=== PATIENT | male | born 1945 | race Caucasian/White ===

== ENCOUNTER 2021-01-01 11:24 | Inpatient (IN) | payer MEDICAID, OTHER ==
[2020-12-31 20:40] VITALS: BP 100/50
[~2021-01-01] VITALS: Ht 165.1 cm; Wt 77.7 kg
[2021-01-01] MEDS ORDERED: ASPI-1497 PO (11:38)
[2021-01-01] MEDS ORDERED: MIDO5TAB4 PO (11:38)
[2021-01-01] MEDS ORDERED: PANT40TA51 PO (11:38)
[2021-01-01] MEDS ORDERED: REN800 PO (11:38)
[2021-01-01] MEDS ORDERED: [UNRECOGNIZED DRUG - CODE] (11:38)
[2021-01-01] MEDS ORDERED: CLOP75TA15 PO (11:38)
[2021-01-01] MEDS ORDERED: ASPIRIN 81MG TABLET PO ONE (14:00)
[2021-01-01] MEDS: ASPIRIN 81MG TABLET PO SCH (14:45)
[2021-01-01 14:55] LABS: BASOPHILS % 0.8 % (0.0-2.0); EOSINOPHILS % 10.6 % (0.0-5.0); HEMATOCRIT. 35.3 % (42.0-52.0); HEMOGLOBIN. 12.3 g/dL (14.0-18.0); LYMPHOCYTES % 16.8 % (20.0-50.0); MEAN CORPUSCULAR VOLUME 97.3 fL (80.0-94.0); MEAN PLATELET VOLUME 9.7 fl (7.4-10.4); MONOCYTES % 6.1 % (2.0-8.0); NEUTROPHILS % 65.7 % (40.0-76.0); PLATELET 164 x1000/uL (130-400); RED BLOOD CELL COUNT 3.62 mill/uL (4.7-6.1); RED CELL DISTRIBUTION WIDTH 13.4 % (11.6-14.6)
[2021-01-01 15:04] LABS: CHLORIDE 97 mEq/L (98-107)
[2021-01-01] MEDS: CLOPIDOGREL 75MG TABLET PO SCH (15:33)
[2021-01-01] MEDS: POLYETHYLENE GLYCOL 3350 (17GM) 1 DOSE PACK PO SCH (15:44)
[2021-01-01] MEDS: SEVELAMER CARBONATE 800 MG TABLET PO SCH (17:20)
[2021-01-01] MEDS ORDERED: ONDANSETRON HCL 4MG/2ML INJ IV PRN (17:30)
[2021-01-01] MEDS ORDERED: MIDODRINE HCL 5MG TABLET PO SCH (17:45)
[2021-01-01] MEDS ORDERED: ENOXAPARIN 30MG/0.3ML SYR SUBCUT SCH (18:00)
[2021-01-01 20:50] VITALS: BP 100/50
[2021-01-01] MEDS: AMIODARONE HCL 200 MG TABLET PO SCH (22:15)
[2021-01-01] MEDS ORDERED: ENOXAPARIN 60MG/0.6ML SYR SUBCUT NR (22:15)
[2021-01-01 22:23] VITALS: BP 100/50
[2021-01-02] VITALS: BP 81/48
[2021-01-02 00:21] LABS: CREATINE KINASE 43 IU/L (39-308)
[2021-01-02 00:22] LABS: CREATINE KINASE MB FRACTION < 1.0 ng/mL (0.5-3.6)
[2021-01-02] MEDS: MIDODRINE HCL 5MG TABLET PO SCH ×4 (01:00→17:42)
[2021-01-02] MEDS: ACETAMINOPHEN 325MG TABLET PO PRN ×2 (01:00→12:27)
[2021-01-02 04:00] VITALS: BP 81/43
[2021-01-02] MEDS: PANTOPRAZOLE 40MG DR TABLET PO SCH (06:34)
[2021-01-02] MEDS: SEVELAMER CARBONATE 800 MG TABLET PO SCH ×3 (06:35→17:41)
[2021-01-02 06:55] LABS: EOSINOPHILS % 13.7 % (0.0-5.0); HEMATOCRIT. 32.3 % (42.0-52.0); HEMOGLOBIN. 11.1 g/dL (14.0-18.0); LYMPHOCYTES % 24.2 % (20.0-50.0); MEAN CORPUSCULAR HEMOGLOBIN 33.6 pg (28.0-32.0); MEAN CORPUSCULAR VOLUME 97.9 fL (80.0-94.0); MEAN PLATELET VOLUME 9.5 fl (7.4-10.4); MONOCYTES % 7.1 % (2.0-8.0); PLATELET 169 x1000/uL (130-400); RED CELL DISTRIBUTION WIDTH 13.5 % (11.6-14.6)
[2021-01-02 07:45] LABS: PHOSPHORUS 4.3 mg/dL (2.5-4.9)
[2021-01-02 07:50] LABS: CREATINE KINASE MB FRACTION 1.4 ng/mL (0.5-3.6)
[2021-01-02 08:00] VITALS: BP 89/47
[2021-01-02] MEDS: POLYETHYLENE GLYCOL 3350 (17GM) 1 DOSE PACK PO SCH (08:52)
[2021-01-02] MEDS: FOLIC ACID/VITAMIN B COMP W-C TABLET PO SCH (08:52)
[2021-01-02] MEDS: CLOPIDOGREL 75MG TABLET PO SCH (08:53)
[2021-01-02] MEDS: ASPIRIN 81MG TABLET PO SCH (08:53)
[2021-01-02] MEDS: AMIODARONE HCL 200 MG TABLET PO SCH (08:56)
[2021-01-02 12:00] VITALS: BP 92/56
[2021-01-02 16:00] VITALS: BP 89/51
[2021-01-02 20:00] VITALS: BP 105/56
[2021-01-02] MEDS ORDERED: ENOXAPARIN 80MG/0.8ML SYR SUBCUT SCH (21:00)
[2021-01-03] VITALS (13 sets, daily range): BP systolic 97–163; BP diastolic 31–63
[2021-01-03] MEDS: PANTOPRAZOLE 40MG DR TABLET PO SCH (05:46)
[2021-01-03] MEDS: SEVELAMER CARBONATE 800 MG TABLET PO SCH ×3 (05:47→17:37)
[2021-01-03 08:04] LABS: PARTIAL THROMBOPLASTIN TIME 26.7 sec (23.4-31.0); PROTHROMBIN TIME 10.8 sec (9.6-11.0)
[2021-01-03 08:05] LABS: BASOPHILS % 1.3 % (0.0-2.0); HEMATOCRIT. 34.2 % (42.0-52.0); HEMOGLOBIN. 11.5 g/dL (14.0-18.0); LYMPHOCYTES % 20.7 % (20.0-50.0); MEAN CORPUSCULAR HEMOGLOBIN 33.4 pg (28.0-32.0); MEAN CORPUSCULAR VOLUME 98.9 fL (80.0-94.0); MEAN PLATELET VOLUME 9.8 fl (7.4-10.4); MONOCYTES % 6.7 % (2.0-8.0); NEUTROPHILS % 64.3 % (40.0-76.0); PLATELET 186 x1000/uL (130-400); RED BLOOD CELL COUNT 3.46 mill/uL (4.7-6.1); RED CELL DISTRIBUTION WIDTH 13.6 % (11.6-14.6)
[2021-01-03] MEDS ORDERED: NICARDIPINE 100MCG/ML 10ML VIAL (CATH LAB) IV ONE ×2 (08:05→08:11)
[2021-01-03] MEDS ORDERED: NITROGLYCERIN 50MCG/ML 10ML VIAL (CATH LAB) IV ONE ×2 (08:05→08:11)
[2021-01-03] MEDS: FOLIC ACID/VITAMIN B COMP W-C TABLET PO SCH (08:08)
[2021-01-03] MEDS: CLOPIDOGREL 75MG TABLET PO SCH ×2 (08:08→09:11)
[2021-01-03] MEDS: MIDODRINE HCL 5MG TABLET PO SCH ×3 (08:08→17:00)
[2021-01-03] MEDS: AMIODARONE HCL 200 MG TABLET PO SCH ×2 (08:08→08:16)
[2021-01-03] MEDS: ASPIRIN 81MG TABLET PO SCH (08:08)
[2021-01-03] MEDS: POLYETHYLENE GLYCOL 3350 (17GM) 1 DOSE PACK PO SCH ×2 (08:08→08:22)
[2021-01-03] MEDS ORDERED: HEPARIN SODIUM 1,000 UNIT/1ML VIAL IV ONE (08:11)
[2021-01-03] MEDS ORDERED: PHENYLEPHRINE 100MCG/ML 10ML VIAL (CATH LAB) IV ONE (08:11)
[2021-01-03 08:48] LABS: PHOSPHORUS 3.6 mg/dL (2.5-4.9)
[2021-01-03] MEDS: FAMOTIDINE 20MG/2ML VIAL IV SCH (13:35)
[2021-01-03] MEDS ORDERED: ASPIRIN/SOD BICARB/CITRIC ACID 324MG TAB EFF ONE (13:58)
[2021-01-03] MEDS ORDERED: LIDOCAINE HCL 1% 20ML VIAL (Pyxis) INJ ONE (14:00)
[2021-01-03] MEDS ORDERED: IODIXANOL 320MG/ML 100 ML BOTTLE IV ONE ×2 (14:00→14:56)
[2021-01-03] MEDS ORDERED: FENTANYL CITRATE/PF 50MCG/ML 2ML VIAL ONE (14:01)
[2021-01-03] MEDS ORDERED: MIDAZOLAM HCL 2 MG/2 ML VIAL ONE (14:01)
[2021-01-03] MEDS ORDERED: IOHEXOL-300 100 ML BOTTLE ONE (14:29)
[2021-01-03] MEDS ORDERED: ONDANSETRON HCL 4MG/2ML INJ IV PRN (15:15)
[2021-01-03] MEDS ORDERED: NALOXONE HCL 0.4MG/ML VIAL IV PRN (15:15)
[2021-01-03] MEDS ORDERED: ATROPINE SULFATE 1MG/10ML SYR IV PRN (15:15)
[2021-01-03] MEDS ORDERED: ACETAMINOPHEN 325MG TABLET PO PRN (15:15)
[2021-01-03] MEDS ORDERED: CLOPIDOGREL 75MG TABLET PO NR (15:15)
[2021-01-03] MEDS ORDERED: MORPHINE SULFATE 2 MG/ML CPJ (NOT FOR IM USE) IV PRN (15:15)
[2021-01-03] MEDS ORDERED: CLOPIDOGREL 75MG TABLET ONE (15:16)
[2021-01-04] VITALS (11 sets, daily range): BP systolic 108–139; BP diastolic 28–69
[2021-01-04 06:29] LABS: BASOPHILS % 0.8 % (0.0-2.0); EOSINOPHILS % 9.7 % (0.0-5.0); HEMATOCRIT. 33.2 % (42.0-52.0); HEMOGLOBIN. 11.2 g/dL (14.0-18.0); LYMPHOCYTES % 14.9 % (20.0-50.0); MEAN CORPUSCULAR HEMOGLOBIN 33.5 pg (28.0-32.0); MEAN PLATELET VOLUME 9.9 fl (7.4-10.4); NEUTROPHILS % 67.6 % (40.0-76.0); PLATELET 146 x1000/uL (130-400); RED BLOOD CELL COUNT 3.35 mill/uL (4.7-6.1); RED CELL DISTRIBUTION WIDTH 13.5 % (11.6-14.6)
[2021-01-04 06:33] LABS: PHOSPHORUS 4.6 mg/dL (2.5-4.9)
[2021-01-04] MEDS: SEVELAMER CARBONATE 800 MG TABLET PO SCH ×3 (07:56→17:20)
[2021-01-04] MEDS: POLYETHYLENE GLYCOL 3350 (17GM) 1 DOSE PACK PO SCH (08:55)
[2021-01-04] MEDS: FAMOTIDINE 20MG/2ML VIAL IV SCH (08:56)
[2021-01-04] MEDS: FOLIC ACID/VITAMIN B COMP W-C TABLET PO SCH (08:56)
[2021-01-04] MEDS: CLOPIDOGREL 75MG TABLET PO SCH (08:56)
[2021-01-04] MEDS: AMIODARONE HCL 200 MG TABLET PO SCH (08:57)
[2021-01-04] MEDS: MIDODRINE HCL 5MG TABLET PO SCH ×3 (08:57→17:00)
[2021-01-04] MEDS ORDERED: ASPIRIN 81MG TABLET PO SCH (09:00)
[2021-01-04 11:23] LABS: HEPATITIS B SURFACE ANTIGEN NEGATIVE
[2021-01-04] MEDS: ACETAMINOPHEN 325MG TABLET PO PRN (13:41)
[2021-01-05] MEDS ORDERED: FAMOTIDINE 20MG TABLET PO SCH (09:00)
== END 2021-01-04 17:56 | disposition home or self-care (01) | DRG 174 ==
LOC: ER 11:24 → 7EST 15:45 → ENRESERV 19:33 → 3WST 01-03 16:40
PROVIDERS: ADMIT Internal Medicine; ATTEND Internal Medicine
PROC: 027034Z Dilation of Coronary Artery, One Artery with Drug-eluting Intraluminal Device, Percutaneous Approach (ICD-10-PCS; principal; 2021-01-03)
PROC: B2111ZZ Fluoroscopy of Multiple Coronary Arteries using Low Osmolar Contrast (ICD-10-PCS; 2021-01-03)
PROC: 4A023N7 Measurement of Cardiac Sampling and Pressure, Left Heart, Percutaneous Approach (ICD-10-PCS; 2021-01-03)
PROC: 5A1D70Z Performance of Urinary Filtration, Intermittent, Less than 6 Hours Per Day (ICD-10-PCS; 2021-01-04)
DX: I21.4 Non-ST elevation (NSTEMI) myocardial infarction (principal); I13.2 Hypertensive heart and chronic kidney disease with heart failure and with stage 5 chronic kidney disease, or end stage renal disease; G62.9 Polyneuropathy, unspecified; I31.3 Pericardial effusion (noninflammatory); I95.89 Other hypotension; E83.39 Other disorders of phosphorus metabolism; I07.1 Rheumatic tricuspid insufficiency; N18.6 End stage renal disease; I48.0 Paroxysmal atrial fibrillation; D64.9 Anemia, unspecified; E05.90 Thyrotoxicosis, unspecified without thyrotoxic crisis or storm; I25.2 Old myocardial infarction; I73.9 Peripheral vascular disease, unspecified; I25.110 Atherosclerotic heart disease of native coronary artery with unstable angina pectoris; I50.9 Heart failure, unspecified; K59.00 Constipation, unspecified; R31.0 Gross hematuria; R00.0 Tachycardia, unspecified; Z20.822 Contact with and (suspected) exposure to COVID-19; K21.9 Gastro-esophageal reflux disease without esophagitis; Z79.02 Long term (current) use of antithrombotics/antiplatelets; Z79.82 Long term (current) use of aspirin; Z82.49 Family history of ischemic heart disease and other diseases of the circulatory system; Z86.73 Personal history of transient ischemic attack (TIA), and cerebral infarction without residual deficits; Z95.5 Presence of coronary angioplasty implant and graft; Z99.2 Dependence on renal dialysis; Z79.899 Other long term (current) drug therapy; Z79.01 Long term (current) use of anticoagulants; R07.9 Chest pain, unspecified
CPT/HCPCS: 36415; 71045; 76857; 80048; 80053; 80061; 82550; 82553; 83735; 83880; 84100; 84484; 85025; 85347; 86705; 86709; 86803; 87340; 87426; 92928; 93005; 93306; 93458; 93880; 93970; 99285; C1725; C1769; C1874 ×2; C1887; C1893; J1644; J1650; J2250; J2370; J3010; J3490; Q9967